=== PATIENT | male | born 1985 | race Two or more races ===

== ENCOUNTER 2019-03-01 12:23 | Emergency (ER) | payer OTHER ==
[~2019-03-01] VITALS: Ht 182.9 cm; Wt 122.5 kg
[2019-03-01 13:42] VITALS: BP 169/96
--- NOTE | 2019-03-01 14:29 | NUR ---
PT SEEN AND EXAMINED BY
[2019-03-01] MEDS ORDERED: CYCLOBENZAPRINE 10 MG TABLET ONE (14:34)
[2019-03-01] MEDS ORDERED: IBUPROFEN 600 MG TABLET PO ONE (14:34)
[2019-03-01] MEDS: CYCLOBENZAPRINE 10 MG TABLET PO ONE (14:36)
[2019-03-01] MEDS: IBUPROFEN 600 MG TABLET PO ONE (14:36)
--- NOTE | 2019-03-01 15:31 | NUR ---
Patient discharged to home in stable condition. Written and verbal after care instructions given. Patient verbalizes understanding of instruction.
== END 2019-03-01 15:34 | disposition home or self-care (01) ==
LOC: ER 12:23
DX: S39.012A Strain of muscle, fascia and tendon of lower back, initial encounter (principal); Z88.8 Allergy status to other drugs, medicaments and biological substances; Z60.2 Problems related to living alone; X50.9XXA Other and unspecified overexertion or strenuous movements or postures, initial encounter; Y93.89 Activity, other specified; Y92.89 Other specified places as the place of occurrence of the external cause; Y99.0 Civilian activity done for income or pay